=== PATIENT | female | born 1970 | race Caucasian/White ===

== ENCOUNTER 2016-08-23 05:00 | Emergency (ER) | payer OTHER ==
--- NOTE | 2016-08-23 04:58 | ED.REPORT ---
HPI-Cardiac Arrest Date of Service Aug 23, 2016 ED Provider: Dr. Cloud Pt is a 43 y/o female w/ a hx of meth abuse, bipolar disorder, presenting to the ED via EMS due to cardiac arrest which occurred about 30 minutes prior to arrival. The patient was having sex in the back of a pickup truck and suddenly collapsed and was unresponsive. EMS was called and CPR was initiated by the partner. EMS arrived to find the patient in pulseless ventricular fibrillation. CPR was continued and prior to arrival to the ED she was given a total of 4 mg epinephrine, 1 amp of calcium, 2 mg Narcan, and 300 mg amiodarone. There were 2 shocks given without change in pulseless rhythm. She was intubated on route without complications. She was never in an organized rhythm. She arrived to the ED after approximately 20-25 minutes of CPR and a STAT medical overhead call and ACLS protocol was followed upon arrival with no return of circulation. Time of was called at 05:06. Nursing Notes Stated Complaint: CPR IN PROGRESS Nursing Notes Reviewed: Yes Allergies: Coded Allergies: No Known Allergies (Unverified Allergy, Unknown, 11/22/14) Scheduled Cephalexin (Keflex) 500 Mg Capsule 500 MG PO BID Citalopram (Citalopram) 40 Mg Tablet 40 MG PO DAILY Fluconazole (Diflucan) 150 Mg Tablet 150 MG PO ONCE Lamotrigine (Lamotrigine) 200 Mg Tablet 200 MG PO HS Metoprolol Tartrate (Metoprolol Tartrate) 25 Mg Tablet 12.5 MG PO BID Miconazole Nitrate (Miconazole Nitrate) 7 Appl/45 Gm Cream.appl 1 APPL VG DAILY Sulfamethoxazole/Trimeth 800-160 mg (Bactrim DS) 1 Each Tablet 1 TABLET PO BID General Time Seen by Provider: 04:59 Chief Complaint Other (Cardiac arrest, witnessed) Context: Resuscitation: Initial rhythm V Fib Hx Obtained From: EMS Unable to Obtain Hx: Patient condition Arrived By: Ambulance Onset Occurred: 16 - 30 minutes ago Symptom Duration: Since onset Progression Since Onset: Unchanged, Constant Past Medical History Past Medical History Meth abuse Bipolar Past Surgical History Unknown Smoking History Unknown if Ever Smoker Social History Drug Use: Meth Ambulatory Status Independent Unable to Obtain History Unable to Obtain Due to: Unknown Review of Systems Unable to Obtain ROS Patient condition Physical Exam Initial Vital Signs See RN sheet Initial VS: Reviewed, Vital signs abnormal GENERAL: Intubated Unresponsive GCS of 3 No external signs of trauma RESPIRATORY/CHEST: Intubated No respiratory effort CARDIOVASCULAR: Rate: pulseless Rhythm: Coarse ventricular fibrillation Abdomen: Atraumatic, Soft Head / Eyes: Atraumatic, Normocephalic ENT: Atraumatic, Airway patent Neck: Atraumatic Back: Atraumatic Upper Extremity / MS: Atraumatic, Inspection NL Lower Extremity / Pelvis / MS: Atraumatic, Inspection NL, No edema Skin: Atraumatic Skin is mottled NEURO: Unresponsive, GCS of 3 Interpretation & Diagnostics Lab Results Interpretation Lab Results Interpretation: No labs done Re-Eval/Medical Decision Med Decision/Clinical Course 46-year-old female who had a cardiac arrest while having sex the back of a pickup. When paramedics arrived they found her to be in coarse V. fib. CPR/ ACLS protocol was performed without successful return of rhythm. She was transported here and further attempts were made at resuscitation including 2 shocks and then additional epinephrine. Resuscitation efforts were terminated at 0506, the time of for the record.. Re-Evaluation/Progress : Time of Eval: 05:06 Re-Evaluation/Progress Note: Time of called 05:06, 08/23/16. Discharge & Departure Impression: Primary Impression: Cardiac arrest Additional Impression: Ventricular fibrillation Disposition: All VS Reviewed: Yes Condition: Referrals: [facility] (PCP) Edgar Lopez MD (Family) Crit Care Except Billable Proc Time Spent: 30-74 minutes Services Performed: Patient management by me, Time spent at bedside, Reviewing test results, Reviewing imaging, Discussing patient care, Documentation in record Critical Care Notes: Unsuccessful resuscitation attempt, ER caveat applies Scribe Attestation Portions of this note were transcribed by Timmy Reagan. I, Dr. Cloud personally performed the history, physical exam and medical decision-making; I reviewed and confirmed the accuracy of the information in the transcribed note. Signed by Tal Bhatti, 08/23/16509 copies to: Edgar Lopez MD; [facility] Carlton Cloud MD Aug 23, 2016 04:58 TIMMY REAGAN Aug 23, 2016 05:05
[~2016-08-23 05:00] MED LIST: CEPH-512 PO; CITA40TA13 PO; FLUC150T48 PO; LAMO200T2 PO; METO25TA6 PO; MICO45CR10 VG; SULF1TAB7 PO
[2016-08-23] MEDS ORDERED: EPINEPHrine 0.1 mg/mL 10 mL Syringe ONE (05:01)
== END 2016-08-23 05:55 | disposition expired ==
LOC: EDSEX 05:00 → SED 05:00 → EDUNIT# 05:00 → EDBD 05:00 → SED 05:55
DX: I46.8 Cardiac arrest due to other underlying condition (principal); I49.01 Ventricular fibrillation
CPT/HCPCS: 94799; 99285; J0171